=== PATIENT | female | born 1975 | race Caucasian/White ===

== ENCOUNTER 2017-11-12 21:33 | Emergency (ER) | payer OTHER ==
--- NOTE | 2017-11-13 01:28 | ED ---
Skin Complaint - HPI Summary HPI Summary: Patient is a 42-year-old female who presents emergency department for a laceration to her right fifth digit of hand that occurred just prior to arrival. Patient states she was slicing bread with a knife when it slipped and cut finger. States her last tetanus immunization was within 5-10 years. He has no significant past medical history. Symptoms are mild in severity. Touching wound makes symptoms worse. Rest makes symptoms better. - History of Current Complaint Chief Complaint: EDLacSutureRecheck Time Seen by Provider: 11/13/17 00:49 Stated Complaint: RT FINGER LAC Hx Obtained From: Patient Pain Intensity: 3 - Allergy/Home Medications Allergies/Adverse Reactions: Allergies Allergy/AdvReac Type Severity Reaction Status Date / Time No Known Allergies Allergy Verified 11/12/17 21:39 PMH/Surg Hx/FS Hx/Imm Hx Previously Healthy: Yes Infectious Disease History: No Infectious Disease History: Reports: Traveled Outside the [place] in Last 30 Days - Social History Occupation: Unemployed Lives: With Family Alcohol Use: Occasionally Substance Use Type: Reports: None Smoking Status (MU): Never Smoked Tobacco Review of Systems Positive: Other - Laceration to right 5th digit of hand All Other Systems Reviewed And Are Negative: Yes Physical Exam Triage Information Reviewed: Yes Vital Signs On Initial Exam: Initial Vitals Temp Pulse Resp BP Pulse Ox 98.6 F 71 16 112/74 100 11/12/17 21:35 11/12/17 21:35 11/12/17 21:35 11/12/17 21:35 11/12/17 21:35 Vital Signs Reviewed: Yes Appearance: Positive: Well-Appearing - Patient sitting on bed in no acute distress. Very pleasant. present. Head/Face: Positive: Normal Head/Face Inspection Neck: Positive: Supple Musculoskeletal: Positive: Other - 1 cm laceration noted to the palmar aspect of the distal fifth digit of hand. Mild active bleeding. Tendons are intact. No bony tenderness. Neurological: Positive: Normal, CN Intact II-III Psychiatric: Positive: Normal Procedures - Laceration/Wound Repair 1 Location: Other - right fifth digit of hand Description: Linear Anesthesia: Local - 2 cc, 1.0% Betadine Prep?: Yes Laceration/Wound Explored: clean Closure: Single Layer Suture Type: Nylon Number of Sutures: 4 Layer Closure?: No Sterile Dressing Applied?: Yes Diagnostics - Vital Signs Vital Signs Temp Pulse Resp BP Pulse Ox 11/12/17 21:35 98.6 F 71 16 112/74 100 - Laboratory Lab Statement: Any lab studies that have been ordered have been reviewed, and results considered in the medical decision making process. Course/Dx - Course Course Of Treatment: Patient presenting to the ER for a minor finger laceration that was repaired as above. Suture removal in 7-10 days. Keep the wound clean and dry. Return to the ER for redness, swelling or drainage from wound. Patient understands and agrees with plan. - Diagnoses Provider Diagnoses: Finger laceration Discharge - Sign-Out/Discharge Documenting (check all that apply): Discharge/Admit/Transfer - Discharge Plan Condition: Good Disposition: HOME Patient Education Materials: Care For Your Stitches (ED) Referrals: No Primary Care Phys,NOPCP [Primary Care Provider] - Additional Instructions: Suture removal in 7-10 days Keep wound clean and dry Return to ER for redness, swelling or drainage from suture site - Billing Disposition and Condition Condition: GOOD Disposition: HOME
[2017-11-13 01:29] VITALS: BP 118/71
== END 2017-11-13 01:28 | disposition home or self-care (01) ==
LOC: ED 21:33
DX: S61.216A Laceration without foreign body of right little finger without damage to nail, initial encounter (principal); W26.0XXA Contact with knife, initial encounter; Y93.G9 Activity, other involving cooking and grilling; Y92.9 Unspecified place or not applicable
CPT/HCPCS: 99282

== ENCOUNTER 2020-03-25 10:50 | Observation (INO) ==
[~2020-03-25 10:50] MED LIST: Clindamycin 900 MG/D5W BAG 900 MG/50 ML BAG IVPB ONE; HYDROmorphone PCA 20 MG/20 ML PCA.SYRING PCA SCH; Ondansetron 4 mg VIAL 2 MG/ML 2 ml VIAL IV ONE; oxyCODONE SR 10 mg TAB PO ONE
[2020-03-25] MEDS: NS 0.9% 500 ML BAG IV ONE ×2 (11:20→11:56)
[2020-03-25] MEDS ORDERED: oxyCODONE SR 10 mg TAB ONE (11:38)
[2020-03-25] MEDS ORDERED: Ondansetron 4 mg VIAL 2 MG/ML 2 ml VIAL ONE (11:38)
[2020-03-25 11:45] LABS: ABS Basophils 0.1 10^3/ul (0-0.2); ABS Eosinophils 0.1 10^3/ul (0-0.6); ABS Lymphocytes 1.6 10^3/ul (1.0-4.8); ABS Monocytes 0.4 10^3/ul (0-0.8); Eosinophil % 3.1 %; Hematocrit 40 % (35-47); Hemoglobin 13.4 g/dL (12.0-16.0); Mean Corpuscular HGB Conc 34 g/dL (31-36); Mean Corpuscular Hemoglobin 30 pg (27-31); Mean Corpuscular Volume 90 fL (80-97); Mean Platelet Volume 7.9 fL (7.4-10.4); Platelet Count 258 10^3/uL (150-450); Red Blood Count 4.42 10^6 /uL (3.70-4.87); Red Cell Distribution Width 14 % (10-15); White Blood Count 4.1 10^3/uL (3.5-10.8)
[2020-03-25 11:53] LABS: Activated Partial Thrombo Time 30.8 seconds (26.0-38.0); INR 1.02 (0.82-1.09)
[2020-03-25 12:03] LABS: Anion Gap 4 mmol/L (2-11); BUN/Creatinine Ratio 17.3 (8-20); Blood Urea Nitrogen 13 mg/dL (6-24); CO2 Carbon Dioxide 28 mmol/L (22-32); Calcium 8.8 mg/dL (8.6-10.3); Chloride 105 mmol/L (101-111); EGFR African American 102.5 (>60); EGFR Non-African American 84.7 (>60); Glucose 92 mg/dL (70-100); Potassium 3.7 mmol/L (3.5-5.0); Sodium 137 mmol/L (135-145)
[2020-03-25 12:10] LABS: HCG Pregnancy < 0.60 mIU/mL
[2020-03-25] MEDS ORDERED: Iohexol 350 (CONTRAST) 200 ML MDV IV ONE (12:49)
[2020-03-25] MEDS ORDERED: Lidocaine 1% VIAL 10 MG/ML VIAL ONE (12:49)
[2020-03-25] MEDS ORDERED: Heparin 2 UNITS/ML 1000 mls 2,000 ML IV ONE (12:50)
[2020-03-25] MEDS ORDERED: Midazolam 5 mg/5 ml VIAL 1 mg/ml 5 ml VIAL (5 mg) ONE (13:01)
[2020-03-25] MEDS ORDERED: fentaNYL 100 mcg/2 ml 50 MCG/ML VIAL ONE ×2 (13:01→14:36)
[2020-03-25] MEDS ORDERED: nitroGLYCERIN DRIP 25,000 MCG/250 ML BTL ONE (13:02)
[2020-03-25] MEDS ORDERED: HYDROmorphone 1 MG/1 ML SYRINGE ONE ×2 (14:39→15:02)
[2020-03-25] MEDS ORDERED: Prochlorperazine 5 mg/ml 2 ml VIAL (10 mg) ONE (14:55)
[2020-03-25] MEDS ORDERED: NS 0.9% 1,000 ML IV SCH (16:00)
[2020-03-25] MEDS: Ondansetron 4 mg VIAL 2 MG/ML 2 ml VIAL IV SCH (19:44)
[2020-03-26] MEDS: Ondansetron 4 mg VIAL 2 MG/ML 2 ml VIAL IV SCH (01:41)
[2020-03-26] MEDS ORDERED: Ondansetron 4 mg VIAL 2 MG/ML 2 ml VIAL IV SCH (07:30)
[2020-03-26] MEDS ORDERED: HYDROcodone/ACETAMIN 5/325 mg TAB PO PRN (08:36)
[2020-03-26] MEDS ORDERED: Ketorolac 10 mg TAB (NF) PO SCH (09:00)
[2020-03-26 12:26] VITALS: BP 127/82
[2020-03-28] MEDS ORDERED: Scopolamine PATCH Remove NOTE PATCH OFF ONE (09:00)
== END 2020-03-26 12:10 | disposition home or self-care (01) ==
LOC: SSU 10:50 → CHICATH 10:50
PROVIDERS: ADMIT Radiology Diagnostic Radiology; ATTEND Hospitalist
PROC: ANG.UFE (2020-03-25 12:10)